=== PATIENT | male | born 1960 | race Caucasian/White ===

== ENCOUNTER 2021-01-30 13:35 | Observation (INO) | payer OTHER, SELFPAY ==
[2021-01-30] VITALS (11 sets, daily range): BP systolic 157–194; BP diastolic 79–141; PULSE 68–83; RESP 16; TEMP 36.7; O2SAT 94–97; BMI 32.0
[2021-01-30 17:27] LABS: Add Manual Diff / Slide Review NO; Basophils Absolute Auto 100 /uL (0-100); Eosinophils Absolute Auto 500 /uL (0-450); Eosinophils Percent Auto 4.5 % (2-4); Lymphocytes Absolute Auto 2500 /uL (1100-4500); Lymphocytes Percent Auto 23.1 % (25-40); Mean Corpuscular HGB Conc 34.1 % (30-36); Mean Corpuscular Hemoglobin 30.7 PG (26-34); Mean Corpuscular Volume 90.1 fL (80-100); Monocytes Absolute Auto 1200 /uL (0-900); Monocytes Percent Auto 11.2 % (3-14); Neutrophils Absolute Auto 6600 /uL (1500-7000); Neutrophils Percent Auto 60.2 % (50-75); Platelet Count 247 X10^3/uL (150-400); Red Blood Cell Count 5.55 X10^6/uL (4.5-5.9); Red Cell Distribution Width 13.3 % (11.6-14.8); White Blood Cell Count 10.9 X10^3/uL (4.5-11.0)
[2021-01-30 17:28] LABS: Alanine Aminotransferase 35 IU/L (<50); Albumin 4.6 g/dL (3.5-5.0); Albumin Globulin Ratio 1.4 (1.0-2.8); Alkaline Phosphatase 96 U/L (38-126); Aspartate Aminotransferase 28 IU/L (17-59); BUN Creatinine Ratio 29.8 (6-22); Bilirubin Total 0.4 mg/dL (0.2-1.3); Blood Urea Nitrogen 14 mg/dL (9-20); Calcium 9.3 mg/dL (8.4-10.2); Carbon Dioxide 27 mmol/L (22-32); Chloride 99 mmol/L (98-107); Estimated Glomerular Filt Rate > 60.0 mL/min (>60); Globulin 3.4 g/dL (1.7-4.1); Glucose 243 mg/dL (80-110); HEMOLYSIS < 15 (0-50); Potassium 4.2 mmol/L (3.4-5.1); Sodium 135 mmol/L (137-145)
[2021-01-30 17:36] LABS: Lipase 3255 U/L (23-300)
--- NOTE | 2021-01-30 18:59 | ED.ABDPAIN ---
HPI - Abdominal Pain General Chief Complaint: Abdominal Pain Stated Complaint: Needs fluids- sent by Doctor Time Seen by Provider: 01/30/21 18:20 Source: patient Mode of arrival: Ambulatory History of Present Illness HPI narrative: 60-year-old gentleman with history of diabetes hypertension hyperlipidemia no prior stroke or heart attack presents with left upper quadrant pain that is been getting worse over the last 48 hours. He has been having nausea but no specific vomiting denies fevers he does report early satiety but no weight changes. No chest pain, palpitations, dyspnea, headaches and no diarrhea. Related Data Home Medications Medication Instructions Recorded Confirmed atenolol 100 mg tablet 50 mg PO DAILY 01/30/21 01/30/21 insulin glargine 100 unit/mL (3 30 unit SUBCUT QPM 01/30/21 01/30/21 mL) subcutaneous pen (Lantus Solostar U-100 Insulin) lisinopril 20 mg tablet 20 mg PO DAILY 01/30/21 01/30/21 metformin 1,000 mg tablet 1,000 mg PO BID 01/30/21 01/30/21 pravastatin 20 mg tablet 20 mg PO DAILY 01/30/21 01/30/21 Allergies Allergy/AdvReac Type Severity Reaction Status Date / Time No Known Drug Allergies Allergy Verified 01/30/21 13:59 Review of Systems Review of Systems Narrative: Remainder of complete review of systems is otherwise unremarkable except for that included in the HPI. Patient History Medical History Hyperlipidemia Hypertension Type 2 diabetes mellitus Social History Smoking Status: Former smoker Smoking Status: Former smoker alcohol intake frequency: holidays/special occasions only Exam Narrative Exam Narrative: General: Healthy appearing, in no acute distress. Able to give a complete and coherent history. Well-nourished well-developed HEENT: Moist mucous membranes, normal sclera with reactive pupils, Neck: No JVD, supple Respiratory: Lungs are clear to auscultation, no wheezing no rales no rhonchi. Full and symmetrical air movement Cardiac: Regular rate and rhythm no murmurs no bruits Abdomen: Soft, diffusely tender with more tenderness in the left upper quadrant, no rebound or guarding, hypoactive bowel tones, no flank pain Skin: Warm and dry, no rashes Neurologic: Grossly neurologically intact with no obvious asymmetries or abnormalities Extremities: No trauma, well perfused Psych: Cooperative, appropriate insight and affect Initial Vital Signs Initial Vital Signs: Vital Signs Temperature 98.1 F 01/30/21 13:54 Pulse Rate 83 01/30/21 13:54 Respiratory Rate 16 01/30/21 13:54 Blood Pressure 177/86 H 01/30/21 13:54 Pulse Oximetry 96 01/30/21 13:54 Course Orders Ordered: ED Orders 01/30/21 17:00 Complete Blood Count AUTO DIFF Stat Comprehensive Metabolic Panel Stat Lipase Stat 01/30/21 19:00 Urine Microscopic Stat 01/30/21 19:10 COVID19 - ADMIT ([facility] swab/PCR) Stat 01/30/21 19:11 CT abdomen pelvis wo con Stat Hydromorphone HCl (Hydromorphone 0.5 Mg Inj) 0.5 mg IV Q15MIN PRN PRN Reason: Pain, Last Admin: 01/30/21 19:18 Dose: 0.5 mg Documented by: JANA Discontinued Medications Sodium Chloride (Normal Saline 0.9%) 1,000 mls @ 1,000 mls/hr IV BOLUS ONE Stop: 01/30/21 19:58 Last Infusion: 01/30/21 19:22 Dose: 0 mls/hr Documented by: Admin: 01/30/21 19:18 Dose: 1,000 mls/hr Documented by: JANA Ondansetron HCl (Ondansetron 4 Mg/2 Ml Inj) 4 mg IV NOW ONE Stop: 01/30/21 19:00 Last Admin: 01/30/21 19:18 Dose: 4 mg Documented by: JANA Vital Signs Vital signs: Vital Signs - 8 hr 01/30/21 13:54 01/30/21 17:37 01/30/21 18:00 Temperature 98.1 F Pulse Rate 83 77 71 Respiratory Rate 16 Blood Pressure 177/86 H 193/96 H 194/95 H Pulse Oximetry 96 96 94 01/30/21 18:30 01/30/21 19:00 01/30/21 19:57 Temperature Pulse Rate 78 76 Respiratory Rate Blood Pressure 176/141 H Pulse Oximetry 96 97 95 01/30/21 19:58 Temperature Pulse Rate 71 Respiratory Rate Blood Pressure 188/98 H Pulse Oximetry 94 MDM - Abdominal Pain Lab Data Result diagrams: 01/30/21 17:00 01/30/21 17:00 Labs: Lab Results 01/30/21 01/30/21 01/30/21 Range/Units 17:00 17:00 19:00 WBC 10.9 (4.5-11.0) X10^3/uL RBC 5.55 (4.5-5.9) X10^6/uL Hgb 17.0 (13.5-17.5) g/dL Hct 50.0 (41-53) % MCV 90.1 (80-100) fL MCH 30.7 (26-34) PG MCHC 34.1 (30-36) % RDW 13.3 (11.6-14.8) % Plt Count 247 (150-400) X10^3/uL Neut % (Auto) 60.2 (50-75) % Lymph % (Auto) 23.1 L (25-40) % [place] % (Auto) 11.2 (3-14) % Eos % (Auto) 4.5 H (2-4) % Baso % (Auto) 1.0 (0-2) % Neut # (Auto) 6600 (1198-4882) /uL Lymph # (Auto) 2500 (7605-8045) /uL [place] # (Auto) 1200 H (0-900) /uL Eos # (Auto) 500 H (0-450) /uL Baso # (Auto) 100 (0-100) /uL Sodium 135 L (137-145) mmol/L Potassium 4.2 (3.4-5.1) mmol/L Chloride 99 (98-107) mmol/L Carbon Dioxide 27 (22-32) mmol/L BUN 14 (9-20) mg/dL Creatinine 0.47 L (0.66-1.25) mg/dL Estimated GFR > 60.0 (>60) mL/min BUN/Creatinine Ratio 29.8 H (6-22) Glucose 243 H (80-110) mg/dL Calcium 9.3 (8.4-10.2) mg/dL Total Bilirubin 0.4 (0.2-1.3) mg/dL AST 28 (17-59) IU/L ALT 35 (<50) IU/L Alkaline Phosphatase 96 (38-126) U/L Total Protein 8.0 (6.3-8.2) g/dL Albumin 4.6 (3.5-5.0) g/dL Globulin 3.4 (1.7-4.1) g/dL Albumin/Globulin Ratio 1.4 (1.0-2.8) Lipase 3255 H (23-300) U/L Urine RBC 0-1/hpf (0-5/HPF) Urine WBC 0-1/hpf (0-5/HPF) Urine Bacteria None seen (None) Ur Culture Indicated? Cult not indicated Point of care testing: Urine Dip Bedside Urine Glucose 1000 mg/dl Bedside Urine Bilirubin - Negative Bedside Urine Ketone +++ 80 Urine Specific [place] 1.030 Bedside Urine Occult Blood - Negative Bedside Urine pH 6.0 Bedside Urine Protein ++ 100 Bedside Urine Urobilinogen - Negative Bedside Urine Nitrite - Negative Bedside Urine Leukocytes - Negative Esterase Imaging Data CT scan - abdomen/pelvis: Radiologist's Impression: FINDINGS:? Image quality:? Excellent.? ? ABDOMEN:? Lung bases:? Lung bases are clear.? Heart size is normal.? ? Solid organs:? Mild non-specific peripancreatic inflammation.? Unremarkable unenhanced liver, spleen, gallbladder, adrenal glands, and kidneys. ? Peritoneum and bowel:? No abnormally dilated or thickened loop of bowel.? No pericolonic or mesenteric inflammatory changes.? Moderate volume of formed stool throughout the colon. ? Nodes and vessels:? Nonaneurysmal abdominal aorta.? No threshold enlarged retroperitoneal lymph node. ? Miscellaneous:? No ventral abdominal wall hernia. ? ? PELVIS:? Genitourinary:? No free pelvic fluid.? Urinary bladder unremarkable.? Mildly enlarged prostate.? No threshold enlarged pelvic or inguinal lymph node. ? Bones:? No suspicious bony lesions.? No vertebral body compression fractures.? ? IMPRESSION:? ? ? Subtle peripancreatic fat stranding which could represent mild pancreatitis.? No associated fluid collection. ? ? Dictated by: Juan Pablo Hickman M.D. on 01/30/2021 at 19:57? ?? ECG Data Interpretation: Sinus rhythm at a rate of 74 Normal intervals, normal axis No acute ischemic changes MDM Narrative Medical decision making narrative: 60-year-old gentleman with increasing abdominal pain elevated lipase consistent with pancreatitis no evidence of obstruction or other abnormalities on CT scan. No drug or alcohol history. Uncertain etiology for the pancreatitis but his prescription medications will need to be closely reviewed. Will admit him for fluids, nausea pain control and further evaluation. 910pm Care is reviewed with Dr Rosenberg, hospitalist. Discharge Plan Departure Patient Disposition: Admitted as Observation Clinical Impression: Acute pancreatitis Prescriptions: No Action atenolol 100 mg tablet 50 mg PO DAILY RF: 0 lisinopril 20 mg Tablet 20 mg PO DAILY RF: 0 metformin 1,000 mg Tablet 1,000 mg PO BID RF: 0 pravastatin 20 mg Tablet 20 mg PO DAILY RF: 0 Lantus Solostar U-100 Insulin 100 unit/mL (3 mL) Insulin Pen 30 unit SUBCUT QPM RF: 0
--- NOTE | 2021-01-30 19:11 | DI.CT.S_ITS ---
PROCEDURE: CT ABDOMEN PELVIS WO CON INDICATIONS: acute pancreatitis TECHNIQUE: After the administration of oral contrast, 5 mm thick sections acquired from the diaphragms to the symphysis. 5 mm coronal and sagittal reformats were performed. For radiation dose reduction, the following was used: automated exposure control, adjustment of mA and/or kV according to patient size. COMPARISON: None. FINDINGS: Image quality: Excellent. ABDOMEN: Lung bases: Lung bases are clear. Heart size is normal. Solid organs: Mild non-specific peripancreatic inflammation. Unremarkable unenhanced liver, spleen, gallbladder, adrenal glands, and kidneys. Peritoneum and bowel: No abnormally dilated or thickened loop of bowel. No pericolonic or mesenteric inflammatory changes. Moderate volume of formed stool throughout the colon. Nodes and vessels: Nonaneurysmal abdominal aorta. No threshold enlarged retroperitoneal lymph node. Miscellaneous: No ventral abdominal wall hernia. PELVIS: Genitourinary: No free pelvic fluid. Urinary bladder unremarkable. Mildly enlarged prostate. No threshold enlarged pelvic or inguinal lymph node. Bones: No suspicious bony lesions. No vertebral body compression fractures. IMPRESSION: Subtle peripancreatic fat stranding which could represent mild pancreatitis. No associated fluid collection. Dictated by: Juan Pablo Hickman M.D. on 01/30/2021 at 19:57 Approved by: Juan Pablo Hickman M.D. on 01/30/2021 at 20:02
[2021-01-30] MEDS: ONDANSETRON 4 MG/2 ML INJ IV (19:18)
[2021-01-30] MEDS: SODIUM CHLORIDE 0.9% 1,000 ML 1000 ML IV (19:18)
[2021-01-30] MEDS: HYDROMORPHONE 0.5 MG INJ IV (19:18)
[2021-01-30 19:57] LABS: Bacteria Urine None Seen; Culture Indicated Urine Cult Not Indicated; RBC Urine 0-1/HPF (0-5/HPF); WBC Urine 0-1/HPF (0-5/HPF)
--- NOTE | 2021-01-30 22:40 | PM.HP.1 ---
History of Present Illness History of Present Illness Date Patient Seen: 01/30/21 Time Patient Seen: 22:41 Chief complaint: Needs fluids- sent by Doctor Narrative: The patient is a 60 y/o male with a history of hypertension, hyperlipidemia, type 2 diabetes mellitus who was well until 2 days prior to admission. The patient reports gradual onset of abdominal discomfort. The pain started on the right side, then progressed to the left side, then became diffuse. The pain was 5/10 Sat and increased on Saturday and became more severe today. The patient was seen at the [facility] in [place] for the pain and advised to proceed to the ED for further evaluation. In the emergency room here in [place] the patient was found to have a WBC of 10.9 H/H of 17/50, Glucose of 243, lipase of 3255, alk phos of 96, AST 28, ALT 35. Patient underwent CT of the Abdomen/Pelvis whcih revealed Subtle peripancreatic fat stranding which could represent mild pancreatitis.? No associated fluid collection. Patient reports that the abdominal pain became quite severe in the emergency department but improved with IV pain medications. The patient denies nausea, emesis, hemetemesis , brbpr, history of alcohol use/abuse. or illicit substances. He has had no abdominal surgeries and no prior history of pancreatitis. He denies change in his weight, no history of gallstones. He denies any trauma to his belly. He has never been hospitalized. The patient had Covid pneumonia 2 years ago and was vaccinated subsequently. The patient is admitted to the hosptial for inpatient treatment of acute pancreatitis. ? Patient History Medical History Hyperlipidemia Hypertension Type 2 diabetes mellitus Family & Social History Family History (Updated 01/30/21 @ 22:49 by Kimi Rosenberg MD) Father Heart disease Safety & Behavioral: no smoking, quit 2 years ago. no alcohol patient does not use illicit substances Tobacco & Substance use: Smoking Status Former smoker alcohol intake frequency holiday/special occasion Meds Home Medications and Allergies Home Medications Medication Instructions Recorded Confirmed Type atenolol 100 mg tablet 50 mg PO DAILY 01/30/21 01/30/21 History glipizide 10 mg tablet, extended 10 mg PO DAILY 01/30/21 01/30/21 History release 24 hr insulin glargine 100 unit/mL (3 30 unit SUBCUT QPM 01/30/21 01/30/21 History mL) subcutaneous pen (Lantus Solostar U-100 Insulin) lisinopril 20 mg tablet 20 mg PO DAILY 01/30/21 01/30/21 History metformin 1,000 mg tablet 1,000 mg PO BID 01/30/21 01/30/21 History ondansetron 4 mg disintegrating 4 mg PO Q8H PRN 01/30/21 01/30/21 History tablet polyethylene glycol 3350 17 17 g PO DAILY PRN 01/30/21 01/30/21 History gram/dose oral powder (Miralax) pravastatin 20 mg tablet 20 mg PO DAILY 01/30/21 01/30/21 History Allergies Allergy/AdvReac Type Severity Reaction Status Date / Time No Known Drug Allergies Allergy Verified 01/30/21 13:59 Review of Systems Review of Systems Narrative: 10 point ROS is negative Exam Vital Signs (past 8 hours): - 01/30/21 17:37 01/30/21 18:00 01/30/21 18:30 Pulse Rate 77 71 78 Blood Pressure 193/96 H 194/95 H 176/141 H Pulse Oximetry 96 94 96 01/30/21 19:00 01/30/21 19:57 01/30/21 19:58 Pulse Rate 76 71 Blood Pressure 188/98 H Pulse Oximetry 97 95 94 01/30/21 20:00 01/30/21 20:30 01/30/21 21:00 Pulse Rate 73 71 68 Blood Pressure Pulse Oximetry 95 94 94 01/30/21 21:13 Pulse Rate 74 Blood Pressure 157/79 H Pulse Oximetry 96 Oxygen Delivery Method Room Air Narrative Exam Narrative: Pleasant male in no acute distress HENNE Other: NC/AT PERRL, EOMI , No scleral icterus Neck Other: Supple without adenopathy or thyromegaly Resp Other: Lungs: clear to auscultation Cardio Other: RRR nl Sl S2 GI Other: Abd: soft/ mildly tender in the right uppper quadrant, no HSM, no rebound tenderness, no boardlike rigidity no palpable masses Skin Other: no lesions noted Neuro Other: Cranial Nerves 2-12 intact, strength is symmetric and equal, sensation grossly intact, gait is not assessed Extrem Other: no edema Psych Other: no confusion, alert, and appropriate no delusions or hallucinations noted Objective Labs Result Diagrams: 01/30/21 17:00 01/30/21 17:00 Labs: Laboratory Results - last 24 hr 01/30/21 01/30/21 01/30/21 17:00 17:00 19:00 WBC 10.9 RBC 5.55 Hgb 17.0 Hct 50.0 MCV 90.1 MCH 30.7 MCHC 34.1 RDW 13.3 Plt Count 247 Neut % (Auto) 60.2 Lymph % (Auto) 23.1 L [place] % (Auto) 11.2 Eos % (Auto) 4.5 H Baso % (Auto) 1.0 Neut # (Auto) 6600 Lymph # (Auto) 2500 [place] # (Auto) 1200 H Eos # (Auto) 500 H Baso # (Auto) 100 Sodium 135 L Potassium 4.2 Chloride 99 Carbon Dioxide 27 BUN 14 Creatinine 0.47 L Estimated GFR > 60.0 BUN/Creatinine Ratio 29.8 H Glucose 243 H Calcium 9.3 Total Bilirubin 0.4 AST 28 ALT 35 Alkaline Phosphatase 96 Total Protein 8.0 Albumin 4.6 Globulin 3.4 Albumin/Globulin Ratio 1.4 Lipase 3255 H Urine RBC 0-1/hpf Urine WBC 0-1/hpf Urine Bacteria None seen Ur Culture Indicated? Cult not indicated Assessment & Plan Assessment & Plan narrative: 60 y/o male with a history of hypertension, hyperlipidemia, type 2 diabetes admitted to the hospital for acute pancreatitis -pain gradual over the last few days -Abdominal CT reveals peripancreatic fat stranding -WBC 10.9, Lipase 3255, LFT's normal -Now with RUQ, given no history of alcohol will check abdominal ultrasounds to r/o stones/sludge/or dilated ducts -NPO except for medications -IV hydration, antinausea medications, pain medications -DVT prophylaxis -antibiotics not indicated as he does not have necrotizing pancreatitis Type 2 Diabetes -will check hemoglobin A1C -hold metformin and glipizide -continue lantus plus sliding scale insulin Hypertension -continue atenolol and lisinopril Hyperlipidemia -will continue pravastatin -will check lipids Patient reports he is a full code. Will note that in his record He surrogate decision maker is his girlfriend, MS Leslie Patient will be admitted as an inpatient I have utilized all available resources to review, update, and verify his current medications. Time Spent With Patient Critical Care time: I spent a total of [] minutes of critical care time on this patient's care today; this time is exclusive of procedural time.
[2021-01-30 23:03] LABS: Hemoglobin A1C% w Est Avg Glu 9.5 % (4.0-6.0)
[2021-01-30 23:05] LABS: COVID19 - ADMIT (NP swab/PCR) Negative (Negative)
[2021-01-30] MEDS: LACTATED RINGERS 1,000 ML 175 ML IV (23:16)
[2021-01-30] MEDS: PRAVASTATIN 20 MG TABLET PO (23:34)
[2021-01-30] MEDS: INSULIN GLARGINE 100 UNIT/ML 3ML PEN 30 UNIT SUBCUT (23:34)
[2021-01-30] MEDS: INSULIN LISPRO 100 UNIT/ML 3ML VIAL SUBCUT (23:35)
[2021-01-30] MEDS: ACETAMINOPHEN 325 MG TABLET 650 MG PO (23:37)
[2021-01-31] VITALS: BP 172/85; PULSE 73; RESP 16; TEMP 37.1; O2SAT 94
--- NOTE | 2021-01-31 00:54 | PC.NURSE ---
Patient is alert and oriented. Breath sounds CTA with RA sat of 94%. HRR with telemetry reading of SR. BP elevated at 172/85. Denies nausea. Complained of 2-3/10 right sided abdominal pain at start of shift and was medicated with scheduled Tylenol. States pain is still the same but has not worsened; is aware he can have other pain medication if pain reached 4-6/10. Abdomen is soft and non tender with active BT. States he has not eaten in past couple days as makes pain increase. Is currently NPO and provided mouth swabs to moisten mouth. Is able to move himself in bed. Gait not assessed but states he is steady and denies any weakness or use of assistive device. Verbalizes agreement to call for staff assist if needing to get up to bathroom. Urinal provided; denies dysuria, frequency or urgency with urination. Bilateral calf SCD's applied at shift change. CBG was 205 and was given insulin according to MD orders. Fall risk score is moderate.
[2021-01-31] MEDS: HYDROMORPHONE 0.5 MG INJ IV ×2 (02:18→16:36)
[2021-01-31] MEDS: LACTATED RINGERS 1,000 ML 175 ML IV (05:03)
[2021-01-31 05:04] VITALS: BP 154/77; PULSE 71; RESP 16; TEMP 36.7; O2SAT 95
[2021-01-31 05:30] LABS: Add Manual Diff / Slide Review NO; Basophils Absolute Auto 100 /uL (0-100); Basophils Percent Auto 0.8 % (0-2); Eosinophils Absolute Auto 400 /uL (0-450); Eosinophils Percent Auto 4.8 % (2-4); Hematocrit 46.8 % (41-53); Hemoglobin 15.7 g/dL (13.5-17.5); Lymphocytes Absolute Auto 2200 /uL (1100-4500); Lymphocytes Percent Auto 24.2 % (25-40); Mean Corpuscular HGB Conc 33.6 % (30-36); Mean Corpuscular Hemoglobin 30.5 PG (26-34); Mean Corpuscular Volume 90.8 fL (80-100); Monocytes Absolute Auto 1000 /uL (0-900); Monocytes Percent Auto 11.3 % (3-14); Neutrophils Absolute Auto 5400 /uL (1500-7000); Neutrophils Percent Auto 58.9 % (50-75); Platelet Count 211 X10^3/uL (150-400); Red Blood Cell Count 5.16 X10^6/uL (4.5-5.9); Red Cell Distribution Width 13.4 % (11.6-14.8); White Blood Cell Count 9.2 X10^3/uL (4.5-11.0)
[2021-01-31 05:37] LABS: Alanine Aminotransferase 27 IU/L (<50); Albumin 3.9 g/dL (3.5-5.0); Albumin Globulin Ratio 1.4 (1.0-2.8); Alkaline Phosphatase 77 U/L (38-126); Aspartate Aminotransferase 22 IU/L (17-59); BUN Creatinine Ratio 27.5 (6-22); Bilirubin Total 0.5 mg/dL (0.2-1.3); Blood Urea Nitrogen 11 mg/dL (9-20); Calcium 8.7 mg/dL (8.4-10.2); Carbon Dioxide 27 mmol/L (22-32); Chloride 101 mmol/L (98-107); Estimated Glomerular Filt Rate > 60.0 mL/min (>60); Globulin 2.7 g/dL (1.7-4.1); Glucose 188 mg/dL (80-110); HEMOLYSIS < 15 (0-50); Potassium 4.3 mmol/L (3.4-5.1); Sodium 133 mmol/L (137-145); Total Protein 6.6 g/dL (6.3-8.2)
[2021-01-31 05:52] LABS: Cholesterol 144 mg/dL (140-199); HDL Cholesterol 40 mg/dL (40-60); LDL Cholesterol Calculated 72 mg/dL (<100); Triglycerides 159 mg/dL (35-150)
[2021-01-31] MEDS: ACETAMINOPHEN 325 MG TABLET 650 MG PO ×2 (05:54→11:26)
[2021-01-31 08:00] VITALS: O2SAT 97
[2021-01-31 09:14] VITALS: BP 174/80; PULSE 73; RESP 17; TEMP 36.9; O2SAT 94
--- NOTE | 2021-01-31 09:30 | DI.US.S_ITS ---
PROCEDURE: US ABDOMEN LIMITED INDICATIONS: POSSIBLE GALLSTONES/CHOLECYSTITIS TECHNIQUE: Real-time focused scanning was performed of the abdomen, with image documentation. COMPARISON: [facility], CT, CT ABDOMEN PELVIS WO CON, 01/30/2021, 19:24. FINDINGS: The liver demonstrates generalized mildly increased echogenicity. This decreases ultrasound sensitivity for detection of hepatic masses. Presumed fatty sparing can be seen adjacent to the gallbladder. No findings of gallstones or sludge are seen. The gallbladder wall is not thickened, measuring 3 mm or less. No specific pericholecystic fluid is seen. The sonographic Humphreys sign is negative. There is no biliary dilatation, the common bile duct measures 5 mm. No significant pancreatic abnormality is seen on these images. IMPRESSION: The gallbladder demonstrates a normal sonographic appearance. No biliary dilatation is seen. The liver demonstrates increased echogenicity. This finding is nonspecific, yet it is most commonly attributed to fatty infiltration. Dictated by: Haider Oseguera M.D. on 01/31/2021 at 9:30 Approved by: Haider Oseguera M.D. on 01/31/2021 at 9:31
[2021-01-31] MEDS: INFLUENZA VACCINE QIV 0.5 ML SYRINGE IM (09:44)
[2021-01-31] MEDS: lisinopriL 20 MG TABLET PO (09:45)
[2021-01-31] MEDS: ENOXAPARIN 40 MG/0.4 ML SYRINGE SUBCUT (09:45)
[2021-01-31] MEDS: atenoloL 50 MG TABLET PO (09:45)
--- NOTE | 2021-01-31 11:19 | P.DS_ITS ---
History of Present Illness History of Present Illness Chief complaint: Needs fluids- sent by Doctor Narrative: The patient is a 60 y/o male with a history of hypertension, hyperlipidemia, type 2 diabetes mellitus who was well until 2 days prior to admission. The patient reports gradual onset of abdominal discomfort. The pain started on the right side, then progressed to the left side, then became diffuse. The pain was 5/10 Sat and increased on Saturday and became more severe today. The patient was seen at the [facility] in [place] for the pain and advised to proceed to the ED for further evaluation. In the emergency room here in [place] the patient was found to have a WBC of 10.9 H/H of 17/50, Glucose of 243, lipase of 3255, alk phos of 96, AST 28, ALT 35.? Patient underwent CT of the Abdomen/Pelvis whcih revealed?Subtle peripancreatic fat stranding which could represent mild pancreatitis.? No associated fluid collection. Patient reports that the abdominal pain became quite severe in the emergency department but improved with IV pain medications. The patient denies nausea, emesis, hemetemesis , brbpr, history of alcohol use/abuse. or illicit substances. He has had no abdominal surgeries and no prior history of pancreatitis. He denies change in his weight, no history of gallstone s. ? He denies any trauma to his belly. He has never been hospitalized.? The patient had Covid pneumonia 2 years ago and was vaccinated subsequently. The patient is admitted to the hosptial for inpatient treatment of acute pancreatitis. Discharge Providers Provider Date of admission: 01/30/21 21:16 Discharge Date: 01/31/21 Discharge provider: Jaylon Felix MD Summary Hospital Course Discharge Diagnosis: 1. Acute pancreatitis, mild 2. Type 2 Diabetes 3. Hypertension 4. Hyperlipidemia Hospital Course: Mr. Garcia was admitted with pancreatitis. He had abdominal pain, CT with mild peripancreatic fat stranding, lipase 3255. His LFTs were normal. No new recent medications. No significant alcohol use. His triglycerides were not significantly elevated. His etiology causing pancreatitis was unclear. He had imaging showing no gallstones. He was given IV fluids and pain med ications. On day of discharge he tolerated a low fat diet with no issues. His pain was controlled. He was given pain medications and discharged home. Exam Vital Signs (past 8 hours): Oxygen Delivery Method Room Air Oxygen Flow Rate 0 Narrative Exam Narrative: GEN: no acute distress CV: regular rate and rhythm PULM: clear bilaterally, no wheezes, rhonchi, rales ABD: soft, nontender, nondistended, no organomegaly EXT: warm and well perfused with no edema Objective Labs Result Diagrams: 01/31/21 05:18 01/31/21 05:18 [facility] Medical History Hyperlipidemia Hypertension Type 2 diabetes mellitus Family History (Updated 01/30/21 @ 22:49 by Kimi Rosenberg MD) Father Heart disease Social History household members: significant other Smoking Status: Former smoker Discharge Plan Discharge Plan Patient Disposition: Home Provider Discharge Comment: Mr. Garcia was admitted with abdominal discomfor t. He was found to have pancreatitis. He improved with IV fluids and pain medications. He was able to be discharged home after tolerating foods with minimal pain. He should be on a low fat diet as that will let his pancreatitis heal. Discharge orders & Medications Prescriptions: New oxycodone 5 mg tablet 5 mg PO Q6H PRN (Reason: pain) Qty: 14 RF: 0 docusate sodium 100 mg tablet 100 mg PO BID Qty: 60 RF: 0 senna 8.6 mg capsule 8.6 mg PO BEDTIME PRN (Reason: constipation) Qty: 30 RF: 0 Continued atenolol 100 mg tablet 50 mg PO DAILY RF: 0 lisinopril 20 mg Tablet 20 mg PO DAILY RF: 0 metformin 1,000 mg Tablet 1,000 mg PO BID RF: 0 pravastatin 20 mg Tablet 20 mg PO DAILY RF: 0 Lantus Solostar U-100 Insulin 100 unit/mL (3 mL) Insulin Pen 30 unit SUBCUT QPM RF: 0 glipizide 10 mg Tablet Extended Release 24hr 10 mg PO DAILY RF: 0 polyethylene glycol 3350 [Miralax] 17 gram/dose Powder 17 g PO DAILY PRN (Reason: Constipation) RF: 0 ondansetron 4 mg Tablet,Disintegrating 4 mg PO Q8H PRN (Reason: Nausea) RF: 0 Diet/Activity/Treatments Diet: Low-fat Visit Report/Discharge Packet Instructions: Eating a Diet Low in Saturated Fat, Trans Fat, and Cholesterol, DI for Pancreatitis Discharge Data Attending Provider: Kimi Rosenberg MIPS - DC The patient has current or prior documentation of left ventricular ejection fraction (LVEF) less than 40%, or moderate or severely depressed left ventricular systolic function.: No
[2021-01-31] MEDS: INSULIN LISPRO 100 UNIT/ML 3ML VIAL SUBCUT ×2 (11:26→17:28)
[2021-01-31 14:08] VITALS: O2SAT 97
--- NOTE | 2021-01-31 14:40 | PC.NURSE ---
Pt able to tolerate full liquid diet without problem. No pain, still some tenderness but the pain he had when he came in is gone. Diet advanced to general. If he is able to tolerate that then he may go home.
--- NOTE | 2021-01-31 14:46 | CM.DANOTE ---
DCP/Assessment: Reviewed chart. Patient is a 60yr old male admitted to [facility] with acute pancreatitis. PCP: Orion Doyle. Primary payor 1) Carol BURGER. Met with patient this afternoon explained CM/SW role. Patient alert and oriented at time of visit. Patient reports that he hopes to d/c home today. Patient resides with significant other in [place]. Patient reports that he is completely I with all ADL's. P: Home when medically stable. No identified d/c planning needs at this time. [facility] Discharge Planning/Care Management CM Discharge Assessment Start: 01/31/21 14:43 Freq: Status: Active Protocol: Document 01/31/21 14:44 KJS (Rec: 01/31/21 14:46 MARLEN [id number]) Discharge Planning Assessment Assigned Making Machine Catcher YAAKOV Brown Contact Information Radha Leslie (Life partner) # [phone] Advance Directives? No History Provided By Patient,Medical Record Prior Living Arrangements House Household Members significant other Type of transporation used prior to Drives own vehicle admit Independent with ADL's Yes Is patient alert and oriented? Yes Caregiver for Another No Barriers to Discharge No Discharge Plan Home Transportation Arrangement Family/partner to provide transport. Referrals Initiated None needed Review Status In Process Next Review Type Continued Stay Review
[2021-01-31 16:34] VITALS: BP 154/95; PULSE 70; RESP 16; TEMP 36.4; O2SAT 95
== END 2021-01-31 19:35 | disposition home or self-care (01) ==
LOC: ED 21:13 → AC 21:17
PROVIDERS: Emergency Medicine; Admitting Provider Internal Medicine; Emergency Provider Emergency Medicine; Visit Provider Internal Medicine
DX: K85.90 Acute pancreatitis without necrosis or infection, unspecified (principal); E11.9 Type 2 diabetes mellitus without complications; I10 Essential (primary) hypertension; E78.5 Hyperlipidemia, unspecified; Z23 Encounter for immunization; Z79.4 Long term (current) use of insulin; Z79.84 Long term (current) use of oral hypoglycemic drugs; Z86.16 Personal history of COVID-19; Z20.822 Contact with and (suspected) exposure to COVID-19
CPT/HCPCS: 36415; 74176; 76705; 80053; 80061; 81003; 81015; 82962; 83036; 83690; 85025; 87635; 90471; 90656; 93005; 93010; 96361; 96374; 99284; C9803; G0378; J1170; J1650; J1815; J2405; Q2038

== ENCOUNTER 2021-05-13 07:26 | Emergency (ER) | payer OTHER, SELFPAY ==
[2021-01-30 22:39] VITALS: BMI 32.0
[2021-05-13 08:08] VITALS: BP 180/100; PULSE 100; RESP 22; TEMP 36.7; O2SAT 97; BMI 31.4
--- NOTE | 2021-05-13 08:36 | ED_ITS ---
HPI - General Adult General Chief complaint: Upper Respiratory Symptoms Stated complaint: cough, cold, had sore throat Time Seen by Provider: 05/13/21 08:36 Source: patient Mode of arrival: Family Vehicle History of Present Illness HPI narrative: 60-year-old gentleman with history of diabetes, hypertension, hyperlipidemia, prior COVID infection and vaccination, prior pancreatitis presents with 4 days of increasing sneezing, cough, sore throat, malaise and cough that seems to be productive however he is not able to get any sputum. He denies fevers, wheezing, chest pain, severe dyspnea, palpitations, lower extremity edema, vomiting, diarrhea. He does note slight dizziness when he stands up and has noticed that his sugars have been increased recently. Blood pressure is elevated on arrival and he notes that he has not taken his usual morning medications. Related Data Home Medications Medication Instructions Recorded Confirmed atenolol 100 mg tablet 50 mg PO DAILY 01/30/21 01/30/21 glipizide 10 mg tablet, extended 10 mg PO DAILY 01/30/21 01/30/21 release 24 hr insulin glargine 100 unit/mL (3 30 unit SUBCUT QPM 01/30/21 01/30/21 mL) subcutaneous pen (Lantus Solostar U-100 Insulin) lisinopril 20 mg tablet 20 mg PO DAILY 01/30/21 01/30/21 metformin 1,000 mg tablet 1,000 mg PO BID 01/30/21 01/30/21 ondansetron 4 mg disintegrating 4 mg PO Q8H PRN 01/30/21 01/30/21 tablet polyethylene glycol 3350 17 17 g PO DAILY PRN 01/30/21 01/30/21 gram/dose oral powder (Miralax) pravastatin 20 mg tablet 20 mg PO DAILY 01/30/21 01/30/21 Previous Rx's Medication Instructions Recorded docusate sodium 100 mg tablet 100 mg PO BID #60 tab 01/31/21 oxycodone 5 mg tablet 5 mg PO Q6H PRN #14 tab 01/31/21 sennosides 8.6 mg capsule (senna) 8.6 mg PO BEDTIME PRN #30 cap 01/31/21 Allergies Allergy/AdvReac Type Severity Reaction Status Date / Time No Known Drug Allergies Allergy Verified 05/13/21 08:12 Review of Systems Review of Systems Narrative: Remainder of complete review of systems is otherwise unremarkable except for that included in the HPI. Patient History Medical History Hyperlipidemia Hypertension Type 2 diabetes mellitus Family History Father Heart disease Social History household members: significant other Smoking Status: Former smoker Smoking Status: Former smoker alcohol intake frequency: holidays/special occasions only Substance Use Type: does not use Exam Initial Vital Signs Initial Vital Signs: Vital Signs Temperature 98.0 F 05/13/21 08:08 Pulse Rate 100 H 05/13/21 08:08 Respiratory Rate 22 05/13/21 08:08 Blood Pressure 180/100 H 05/13/21 08:08 Pulse Oximetry 97 05/13/21 08:08 General: Appears to not feel well but in no acute distress. Able to give a complete and coherent history. Well-nourished well-developed HEENT: Moist mucous membranes, normal sclera with reactive pupils, no significant posterior pharyngeal erythema or exudate Neck: No JVD, supple, no cervical adenopathy Respiratory: Lungs are clear to auscultation, no wheezing no rales no rhonchi. Full and symmetrical air movement Cardiac: Regular rate and rhythm no murmurs no bruits Abdomen: Soft, nontender, good bowel tones, no flank pain Skin: Warm and dry, no rashes Neurologic: Grossly neurologically intact with no obvious asymmetries or abnormalities Extremities: No trauma, well perfused Psych: Cooperative, appropriate insight and affect Course Orders Ordered: ED Orders 05/13/21 07:52 COVID19 -Nasal swab/Pre-Proc Stat 05/13/21 08:46 XR chest 1V Stat 05/13/21 09:00 Complete Blood Count AUTO DIFF Stat Comprehensive Metabolic Panel Stat Procalcitonin Stat Discontinued Medications Atenolol (Atenolol 50 Mg Tablet) 50 mg PO NOW ONE Stop: 05/13/21 08:45 Last Admin: 05/13/21 09:10 Dose: 50 mg Documented by: EMILE Lisinopril (Lisinopril 20 Mg Tablet) 20 mg PO NOW ONE Stop: 05/13/21 08:45 Last Admin: 05/13/21 09:09 Dose: 20 mg Documented by: EMILE Vital Signs Vital signs: Vital Signs - 8 hr 05/13/21 08:08 05/13/21 09:09 05/13/21 10:00 Temperature 98.0 F Pulse Rate 100 H 98 H 78 Respiratory Rate 22 18 Blood Pressure 180/100 H 193/95 H 171/89 H Pulse Oximetry 97 94 Medical Decision Making Lab Data Result diagrams: 05/13/21 09:00 05/13/21 09:00 Labs: Lab Results 05/13/21 05/13/21 05/13/21 Range/Units 07:52 09:00 09:00 WBC 11.4 H (4.5-11.0) X10^3/uL RBC 5.24 (4.5-5.9) X10^6/uL Hgb 16.3 (13.5-17.5) g/dL Hct 46.8 (41-53) % MCV 89.3 (80-100) fL MCH 31.0 (26-34) PG MCHC 34.7 (30-36) % RDW 13.1 (11.6-14.8) % Plt Count 283 (150-400) X10^3/uL Neut % (Auto) 67.5 (50-75) % Lymph % (Auto) 16.4 L (25-40) % [place] % (Auto) 12.2 (3-14) % Eos % (Auto) 3.3 (2-4) % Baso % (Auto) 0.6 (0-2) % Neut # (Auto) 7700 H (2291-6089) /uL Lymph # (Auto) 1900 (1564-0513) /uL [place] # (Auto) 1400 H (0-900) /uL Eos # (Auto) 400 (0-450) /uL Baso # (Auto) 100 (0-100) /uL Sodium 133 L (137-145) mmol/L Potassium 4.5 (3.4-5.1) mmol/L Chloride 95 L (98-107) mmol/L Carbon Dioxide 30 (22-32) mmol/L BUN 13 (9-20) mg/dL Creatinine 0.54 L (0.66-1.25) mg/dL Estimated GFR > 60.0 (>60) mL/min BUN/Creatinine Ratio 24.1 H (6-22) Glucose 302 H (80-110) mg/dL Calcium 9.7 (8.4-10.2) mg/dL Total Bilirubin 0.6 (0.2-1.3) mg/dL AST 29 (17-59) IU/L ALT 36 (<50) IU/L Alkaline Phosphatase 134 H (38-126) U/L Total Protein 8.4 H (6.3-8.2) g/dL Albumin 4.5 (3.5-5.0) g/dL Globulin 3.9 (1.7-4.1) g/dL Albumin/Globulin Ratio 1.2 (1.0-2.8) Procalcitonin (<0.5) ng/mL SARS-CoV-2 (PCR) Negative (Negative) 05/13/21 Range/Units 09:00 WBC (4.5-11.0) X10^3/uL RBC (4.5-5.9) X10^6/uL Hgb (13.5-17.5) g/dL Hct (41-53) % MCV (80-100) fL MCH (26-34) PG MCHC (30-36) % RDW (11.6-14.8) % Plt Count (150-400) X10^3/uL Neut % (Auto) (50-75) % Lymph % (Auto) (25-40) % [place] % (Auto) (3-14) % Eos % (Auto) (2-4) % Baso % (Auto) (0-2) % Neut # (Auto) (2008-7005) /uL Lymph # (Auto) (5473-4789) /uL [place] # (Auto) (0-900) /uL Eos # (Auto) (0-450) /uL Baso # (Auto) (0-100) /uL Sodium (137-145) mmol/L Potassium (3.4-5.1) mmol/L Chloride (98-107) mmol/L Carbon Dioxide (22-32) mmol/L BUN (9-20) mg/dL Creatinine (0.66-1.25) mg/dL Estimated GFR (>60) mL/min BUN/Creatinine Ratio (6-22) Glucose (80-110) mg/dL Calcium (8.4-10.2) mg/dL Total Bilirubin (0.2-1.3) mg/dL AST (17-59) IU/L ALT (<50) IU/L Alkaline Phosphatase (38-126) U/L Total Protein (6.3-8.2) g/dL Albumin (3.5-5.0) g/dL Globulin (1.7-4.1) g/dL Albumin/Globulin Ratio (1.0-2.8) Procalcitonin 0.10 (<0.5) ng/mL SARS-CoV-2 (PCR) (Negative) Imaging Data Chest x-ray: Radiologist's Impression: FINDINGS:? ? Surgical changes and devices:? None.? ? Lungs and pleura:? Lungs are clear.? No pleural effusions or pneumothorax.? ? Mediastinum:? Mediastinal contours appear normal.? Heart size is enlarged.? Mild vascular congestion noted..? ? Bones and chest wall:? No suspicious bony lesions.? Overlying soft tissues appear unremarkable.? Convex left cervical thoracic scoliosis ? IMPRESSION:? Cardiomegaly and mild vascular congestion. ? ? ? Approved by: Eugene Poole M.D. on 05/13/2021 at 8:08? [facility] Narrative Medical decision making narrative: 60-year-old gentleman with cough and sore throat. COVID negative. No evidence of bacterial superinfection or bacterial pneumonia. At this time, there is no evidence of sepsis, acute coronary syndrome, significant heart failure. Reassurance is given and anticipatory guidance regarding resolution of viral upper respiratory symptoms reviewed. Questions are answered he is safe for home discharge Discharge Plan Departure Patient Disposition: Home Clinical Impression: Upper respiratory infection Instructions: DI for Viral Upper Respiratory Infection -- Adult Activity Restrictions/Additional Instructions: Thank you for coming in today Workup today does not show any evidence for COVID, bacterial pneumonia, heart attack, heart failure or other reasons that would require hospitalization. You have an upper respiratory infection and it likely is going to improve within the next couple of days with simple rest, plenty of fluids and a little bit of chicken soup. If you are getting worse, please return to the ER Prescriptions: No Action atenolol 100 mg tablet 50 mg PO DAILY 0RF Label Comments: TAKE 1/2 TABLET BY MOUTH DAILY lisinopril 20 mg Tablet 20 mg PO DAILY 0RF metformin 1,000 mg Tablet 1,000 mg PO BID 0RF pravastatin 20 mg Tablet 20 mg PO DAILY 0RF Lantus Solostar U-100 Insulin 100 unit/mL (3 mL) Insulin Pen 30 unit SUBCUT QPM 0RF glipizide 10 mg Tablet Extended Release 24hr 10 mg PO DAILY 0RF polyethylene glycol 3350 [Miralax] 17 gram/dose Powder 17 g PO DAILY PRN (Reason: Constipation) 0RF ondansetron 4 mg Tablet,Disintegrating 4 mg PO Q8H PRN (Reason: Nausea) 0RF oxycodone 5 mg tablet 5 mg PO Q6H PRN (Reason: pain) Qty: 14 0RF docusate sodium 100 mg tablet 100 mg PO BID Qty: 60 0RF senna 8.6 mg capsule 8.6 mg PO BEDTIME PRN (Reason: constipation) Qty: 30 0RF
[2021-05-13 08:44] LABS: COVID19 -Nasal RAPID Negative (Negative)
--- NOTE | 2021-05-13 08:46 | DI.RAD.S_ITS ---
PROCEDURE: XR CHEST 1V INDICATIONS: cough, dyspnea TECHNIQUE: One view of the chest was acquired. COMPARISON: None. FINDINGS: Surgical changes and devices: None. Lungs and pleura: Lungs are clear. No pleural effusions or pneumothorax. Mediastinum: Mediastinal contours appear normal. Heart size is enlarged. Mild vascular congestion noted.. Bones and chest wall: No suspicious bony lesions. Overlying soft tissues appear unremarkable. Convex left cervical thoracic scoliosis IMPRESSION: Cardiomegaly and mild vascular congestion. Approved by: Eugene Poole M.D. on 05/13/2021 at 8:08
[2021-05-13 09:09] VITALS: BP 193/95; PULSE 98
[2021-05-13] MEDS: lisinopriL 20 MG TABLET PO (09:09)
[2021-05-13 09:10] LABS: Add Manual Diff / Slide Review NO; Basophils Absolute Auto 100 /uL (0-100); Basophils Percent Auto 0.6 % (0-2); Eosinophils Absolute Auto 400 /uL (0-450); Eosinophils Percent Auto 3.3 % (2-4); Hematocrit 46.8 % (41-53); Hemoglobin 16.3 g/dL (13.5-17.5); Lymphocytes Absolute Auto 1900 /uL (1100-4500); Lymphocytes Percent Auto 16.4 % (25-40); Mean Corpuscular HGB Conc 34.7 % (30-36); Mean Corpuscular Volume 89.3 fL (80-100); Monocytes Absolute Auto 1400 /uL (0-900); Monocytes Percent Auto 12.2 % (3-14); Neutrophils Absolute Auto 7700 /uL (1500-7000); Neutrophils Percent Auto 67.5 % (50-75); Platelet Count 283 X10^3/uL (150-400); Red Blood Cell Count 5.24 X10^6/uL (4.5-5.9); Red Cell Distribution Width 13.1 % (11.6-14.8); White Blood Cell Count 11.4 X10^3/uL (4.5-11.0)
[2021-05-13] MEDS: atenoloL 50 MG TABLET PO (09:10)
[2021-05-13 09:20] LABS: Alanine Aminotransferase 36 IU/L (<50); Albumin 4.5 g/dL (3.5-5.0); Albumin Globulin Ratio 1.2 (1.0-2.8); Alkaline Phosphatase 134 U/L (38-126); Aspartate Aminotransferase 29 IU/L (17-59); BUN Creatinine Ratio 24.1 (6-22); Bilirubin Total 0.6 mg/dL (0.2-1.3); Blood Urea Nitrogen 13 mg/dL (9-20); Calcium 9.7 mg/dL (8.4-10.2); Carbon Dioxide 30 mmol/L (22-32); Chloride 95 mmol/L (98-107); Estimated Glomerular Filt Rate > 60.0 mL/min (>60); Globulin 3.9 g/dL (1.7-4.1); Glucose 302 mg/dL (80-110); HEMOLYSIS < 15 (0-50); Potassium 4.5 mmol/L (3.4-5.1); Sodium 133 mmol/L (137-145); Total Protein 8.4 g/dL (6.3-8.2)
[2021-05-13 10:00] VITALS: BP 171/89; PULSE 78; RESP 18; O2SAT 94
== END 2021-05-13 11:11 | disposition home or self-care (01) ==
PROVIDERS: Emergency Provider Emergency Medicine
DX: J06.9 Acute upper respiratory infection, unspecified (principal); E11.65 Type 2 diabetes mellitus with hyperglycemia; Z79.84 Long term (current) use of oral hypoglycemic drugs; Z79.4 Long term (current) use of insulin; Z20.822 Contact with and (suspected) exposure to COVID-19; Z87.891 Personal history of nicotine dependence
CPT/HCPCS: 36415; 71045; 80053; 84145; 85025; 87635; 99283; 99284; C9803

== ENCOUNTER 2022-06-30 20:57 | Emergency (ER) | payer OTHER, SELFPAY ==
[2021-01-30 22:39] VITALS: BMI 32.0
[2022-06-30 21:03] VITALS: BP 207/98; PULSE 75; RESP 18; TEMP 36.6; O2SAT 96; BMI 31.0
[2022-06-30 21:19] LABS: Add Manual Diff / Slide Review NO; Basophils Absolute Auto 100 /uL (0-100); Eosinophils Absolute Auto 500 /uL (0-450); Hematocrit 48.8 % (41-53); Hemoglobin 17.1 g/dL (13.5-17.5); Lymphocytes Absolute Auto 2300 /uL (1100-4500); Lymphocytes Percent Auto 19.7 % (25-40); Mean Corpuscular HGB Conc 35.1 % (30-36); Mean Corpuscular Hemoglobin 31.3 PG (26-34); Mean Corpuscular Volume 89.2 fL (80-100); Monocytes Absolute Auto 1100 /uL (0-900); Monocytes Percent Auto 9.8 % (3-14); Neutrophils Absolute Auto 7500 /uL (1500-7000); Neutrophils Percent Auto 65.5 % (50-75); Platelet Count 237 X10^3/uL (150-400); Red Blood Cell Count 5.47 X10^6/uL (4.5-5.9); Red Cell Distribution Width 13.3 % (11.6-14.8); White Blood Cell Count 11.4 X10^3/uL (4.5-11.0)
[2022-06-30 21:31] LABS: Alanine Aminotransferase 37 IU/L (<50); Albumin 4.3 g/dL (3.5-5.0); Albumin Globulin Ratio 1.3 (1.0-2.8); Alkaline Phosphatase 127 U/L (38-126); Aspartate Aminotransferase 25 IU/L (17-59); Bilirubin Total 0.6 mg/dL (0.2-1.3); Blood Urea Nitrogen 15 mg/dL (9-20); Calcium 8.8 mg/dL (8.4-10.2); Carbon Dioxide 26 mmol/L (22-32); Chloride 97 mmol/L (98-107); Estimated Glomerular Filt Rate > 60 mL/min (>60); Globulin 3.3 g/dL (1.7-4.1); Glucose 390 mg/dL (80-110); HEMOLYSIS 44 (0-50); Lipase 475 U/L (23-300); Potassium 4.3 mmol/L (3.4-5.1); Sodium 131 mmol/L (137-145); Total Protein 7.6 g/dL (6.3-8.2)
--- NOTE | 2022-06-30 22:54 | ED.ABDPAIN ---
HPI - Abdominal Pain General Chief Complaint: Abdominal Pain Stated Complaint: abd pain x1 day Time Seen by Provider: 06/30/22 20:57 Source: patient Mode of arrival: Ambulatory History of Present Illness HPI narrative: 61-year-old male former smoker with history of diabetes and hypertension presents with a chief complaint of right-sided flank pain with radiation around to his right abdomen. He states this has been on some level gradually worsening over the past 24 hours and become quite intense. He states that at times the pain seems to worsened without obvious provocation or palliation and at other times it seems to worsen with motion. He states it started in his right back in his wrapped around his right side. He denies any fever but has had a few episodes of chills. He has been nauseated but denies any vomiting. He denies chest pain or shortness of breath. He denies any dysuria, frequency or urgency and has had no constipation or diarrhea Related Data Home Medications Medication Instructions Recorded Confirmed atenolol 100 mg tablet 50 mg PO DAILY 01/30/21 01/30/21 glipizide 10 mg tablet, extended 10 mg PO DAILY 01/30/21 01/30/21 release 24 hr insulin glargine 100 unit/mL (3 30 unit SUBCUT QPM 01/30/21 01/30/21 mL) subcutaneous pen (Lantus Solostar U-100 Insulin) lisinopril 20 mg tablet 20 mg PO DAILY 01/30/21 01/30/21 metformin 1,000 mg tablet 1,000 mg PO BID 01/30/21 01/30/21 ondansetron 4 mg disintegrating 4 mg PO Q8H PRN Nausea 01/30/21 01/30/21 tablet polyethylene glycol 3350 17 17 g PO DAILY PRN Constipation 01/30/21 01/30/21 gram/dose oral powder (Miralax) pravastatin 20 mg tablet 20 mg PO DAILY 01/30/21 01/30/21 Previous Rx's Medication Instructions Recorded docusate sodium 100 mg tablet 100 mg PO BID #60 tabs 01/31/21 oxycodone 5 mg tablet 5 mg PO Q6H PRN pain #14 tabs 01/31/21 sennosides 8.6 mg capsule (senna) 8.6 mg PO BEDTIME PRN constipation 01/31/21 #30 caps ketorolac 10 mg tablet 10 mg PO Q6H PRN pain #14 tabs 07/01/22 ketorolac 10 mg tablet 10 mg PO Q6H PRN pain #14 tabs 07/01/22 Allergies Allergy/AdvReac Type Severity Reaction Status Date / Time No Known Drug Allergies Allergy Verified 05/13/21 08:12 Review of Systems Review of Systems Narrative: GENERAL: Denies chills, fatigue, malaise, fever, sweats. HEENT: Denies sinus pain, ear pain, sore throat, difficulty swallowing, dizziness. RESPIRATORY: Denies dyspnea, cough, wheezing, hemoptysis, sputum. CARDIOVASCULAR: Denies chest pain, palpitations, orthopnea, edema, GASTROINTESTINAL: See HPI. : See HPI MUSCULOSKELETAL: denies weakness, joint pain, or bony pain SKIN: Denies rash, skin lesions, or other NEUROLOGIC: Denies weakness, headache, numbness, change in speech, confusion, seizures, incoordination. PSYCHIATRIC: No concerning psychosocial issues. 12 point review of systems is negative except for those stated above Patient History Medical History Hyperlipidemia Hypertension Type 2 diabetes mellitus Family History Father Heart disease Social History household members: significant other Smoking Status: Former smoker Smoking Status: Former smoker alcohol intake frequency: holidays/special occasions only Substance Use Type: marijuana Exam Narrative Exam Narrative: GENERAL: [61] year old patient appears stated age. Well-developed patient, in mild distress. HEAD: Atraumatic. Normocephalic. EYES: Pupils equal round and reactive. Extraocular motions intact. No scleral icterus. No injection or drainage. ENT: Nose without bleeding, purulent drainage. Throat without erythema, tonsillar hypertrophy or exudate. Airway patent. NECK: Trachea midline. Non tender CARDIOVASCULAR: Regular rate and rhythm without murmurs, gallops, or rubs. RESPIRATORY: Clear to auscultation. Breath sounds equal bilaterally. No wheezes, rales, or rhonchi. GASTROINTESTINAL: Abdomen soft, non-tender, nondistended. EXTREMITIES: No edema or joint tenderness. BACK: Nontender without deformity or crepitance. No flank tenderness. NEURO: AOx3. SKIN: No rash or erythema of visible areas Initial Vital Signs Initial Vital Signs: Vital Signs Temperature 97.8 F 06/30/22 21:03 Pulse Rate 75 06/30/22 21:03 Respiratory Rate 18 06/30/22 21:03 Blood Pressure 207/98 H 06/30/22 21:03 Pulse Oximetry 96 06/30/22 21:03 Oxygen Delivery Method Room Air 06/30/22 21:03 Course Orders Ordered: Discontinued Medications Sodium Chloride (Normal Saline 0.9%) 1,000 mls @ 1,000 mls/hr IV BOLUS ONE Stop: 06/30/22 23:57 Last Infusion: 07/01/22 00:16 Dose: 0 mls/hr Documented By: Admin: 06/30/22 23:16 Dose: 1,000 mls/hr Documented By: CHLOE Ketorolac Tromethamine (Ketorolac 30 Mg/Ml Vial) 15 mg IV NOW ONE Stop: 06/30/22 22:59 Last Admin: 06/30/22 23:16 Dose: 15 mg Documented By: CHLOE Ondansetron HCl (Ondansetron 4 Mg Odt) 4 mg PO NOW PRN PRN Reason: Nausea And Vomiting Ondansetron HCl (Ondansetron 4 Mg/2 Ml Inj) 4 mg IV NOW PRN PRN Reason: Nausea And Vomiting Last Admin: 06/30/22 23:16 Dose: 4 mg Documented By: CHLOE Vital Signs Vital signs: Vital Signs - 8 hr 06/30/22 21:03 Temperature 97.8 F Pulse Rate 75 Respiratory Rate 18 Blood Pressure 207/98 H Pulse Oximetry 96 Oxygen Delivery Method Room Air MDM - Abdominal Pain Lab Data 06/30/22 21:10 06/30/22 21:10 Labs: Lab Results 06/30/22 06/30/22 Range/Units 21:10 21:10 WBC 11.4 H (4.5-11.0) X10^3/uL RBC 5.47 (4.5-5.9) X10^6/uL Hgb 17.1 (13.5-17.5) g/dL Hct 48.8 (41-53) % MCV 89.2 (80-100) fL MCH 31.3 (26-34) PG MCHC 35.1 (30-36) % RDW 13.3 (11.6-14.8) % Plt Count 237 (150-400) X10^3/uL Neut % (Auto) 65.5 (50-75) % Lymph % (Auto) 19.7 L (25-40) % [place] % (Auto) 9.8 (3-14) % Eos % (Auto) 4.0 (2-4) % Baso % (Auto) 1.0 (0-2) % Neut # (Auto) 7500 H (2509-8459) /uL Lymph # (Auto) 2300 (8286-2699) /uL [place] # (Auto) 1100 H (0-900) /uL Eos # (Auto) 500 H (0-450) /uL Baso # (Auto) 100 (0-100) /uL Sodium 131 L (137-145) mmol/L Potassium 4.3 (3.4-5.1) mmol/L Chloride 97 L (98-107) mmol/L Carbon Dioxide 26 (22-32) mmol/L BUN 15 (9-20) mg/dL Creatinine 0.60 L (0.66-1.25) mg/dL Estimated GFR > 60 (>60) mL/min BUN/Creatinine Ratio 25.0 H (6-22) Glucose 390 H (80-110) mg/dL Calcium 8.8 (8.4-10.2) mg/dL Total Bilirubin 0.6 (0.2-1.3) mg/dL AST 25 (17-59) IU/L ALT 37 (<50) IU/L Alkaline Phosphatase 127 H (38-126) U/L Total Protein 7.6 (6.3-8.2) g/dL Albumin 4.3 (3.5-5.0) g/dL Globulin 3.3 (1.7-4.1) g/dL Albumin/Globulin Ratio 1.3 (1.0-2.8) Lipase 475 H (23-300) U/L Point of care testing: Urine Dip Bedside Urine Glucose 1000 mg/dl Bedside Urine Bilirubin - Negative Bedside Urine Ketone - Negative Urine Specific [place] 1.010 Bedside Urine Occult Blood - Negative Bedside Urine pH 6.0 Bedside Urine Protein +/- 15 Bedside Urine Urobilinogen - Negative Bedside Urine Nitrite - Negative Bedside Urine Leukocytes - Negative Esterase MDM Narrative Medical decision making narrative: CC: 61-year-old male with colicky right flank pain Complicating co-morbidities: Age, diabetes, hypertension Data collected from: Patient Medical records reviewed: Prior notes reviewed in our EMR Differential considered, but not limited to: Kidney stone, urinary infection, bowel problem, gallbladder, liver versus other Exam documented above, pertinent findings include: Heart regular, lungs clear and nonlabored, abdomen nontender and soft, bowel sounds present Lab Test results independently reviewed as above. Pertinent findings: Urine with large amount of glucose but no blood or signs of infection, no leukocytosis or left shift, no evidence of anemia, no significant abnormal electrolytes, renal function at baseline, glucose elevated at 390, lipase slightly elevated at 475, noted to have no pain in his epigastrium Independently reviewed EKG as above Imaging studies independently reviewed: Etiology reported right flank pain is not identified, no hydronephrosis or nephrolithiasis Treatments: Toradol and IV fluids Re-evaluations: Symptoms significantly improved Discussion: Patient with colicky right flank pain improved significantly with fluids and Toradol. No significant lab abnormalities, no infection in urine, no kidney stone on imaging. Possibly musculoskeletal, missed kidney stone versus other. Pain is well controlled, patient is tolerating orals, no signs of sepsis or suggestion that hospitalization or surgical intervention is needed. Disposition: see below, along with detailed discharge instructions that have been reviewed with patient as well as indications for ED re-evaluation and additional outpatient follow up Discharge Plan Departure Patient Disposition: Home Clinical Impression: Acute flank pain Instructions: DI for Flank Pain Activity Restrictions/Additional Instructions: *You have been diagnosed with [right flank pain. As we discussed your history, physical exam, labs and imaging are reassuring as is your response to medications.] *What to do: *Please continue to take your regular medications as directed. [ x] New medication prescriptions sent to your pharmacy: [[facility]] [ ] New medication written as a paper prescription [ ] No new medications given *Please follow up with your primary care provider in 2-3 days, call for an appointment. Let them know you were seen in the Emergency Department and that we ask that you be seen in follow up. We will electronically transmit a record of today's note if your PCP is in our system *If you do not have a primary care provider please contact the [facility] Resource line at [phone]. They will ask some questions about your medical history and help get you set up with a doctor in the community. *Return to Emergency Department if you should have any new, worsening or concerning symptoms, such as [fever greater than 101 F, shaking chills, worsening pain, persistent vomiting or other bothersome symptoms] Prescriptions: New ketorolac 10 mg tablet 10 mg PO Q6H PRN (Reason: pain) Qty: 14 0RF ketorolac 10 mg tablet 10 mg PO Q6H PRN (Reason: pain) Qty: 14 0RF No Action atenolol 100 mg tablet 50 mg PO DAILY Patient Comments: TAKE 1/2 TABLET BY MOUTH DAILY lisinopril 20 mg Tablet 20 mg PO DAILY metformin 1,000 mg Tablet 1,000 mg PO BID pravastatin 20 mg Tablet 20 mg PO DAILY Lantus Solostar U-100 Insulin 100 unit/mL (3 mL) Insulin Pen 30 unit SUBCUT QPM glipizide 10 mg Tablet Extended Release 24hr 10 mg PO DAILY polyethylene glycol 3350 [Miralax] 17 gram/dose Powder 17 g PO DAILY PRN (Reason: Constipation) ondansetron 4 mg Tablet,Disintegrating 4 mg PO Q8H PRN (Reason: Nausea) oxycodone 5 mg tablet 5 mg PO Q6H PRN (Reason: pain) Qty: 14 0RF docusate sodium 100 mg tablet 100 mg PO BID Qty: 60 0RF senna 8.6 mg capsule 8.6 mg PO BEDTIME PRN (Reason: constipation) Qty: 30 0RF Stand Alone Forms: Patient Portal/API
--- NOTE | 2022-06-30 22:58 | DI.CT.S_ITS ---
PROCEDURE: CT KIDNEY URETER BLADDER (KUB) INDICATIONS: colicky R flank pain TECHNIQUE: Axial sections were acquired from the lung bases to the pubic symphysis. Coronal and sagittal reformats were performed. For radiation dose reduction, the following was used: automated exposure control, adjustment of mA and/or kV according to patient size. COMPARISON: None. FINDINGS: Image quality: Excellent. Lung bases: Unremarkable. Heart: No significant findings. URINARY: Right Kidney: No stones or hydronephrosis. Right Ureter: No hydroureter. Left Kidney: No stones or hydronephrosis. Left Ureter: No hydroureter. Bladder: Normal wall thickness. No stones. ABDOMEN: Liver: Unremarkable. Gallbladder: Unremarkable. Biliary ducts: Unremarkable. Pancreas: Unremarkable. Spleen: Unremarkable. Adrenal Glands: Unremarkable. Stomach and Bowel: Stomach, small bowel loops, and colon are unremarkable. Peritoneum: No abnormal intraperitoneal fluid. No free air. Ventral Wall: No hernia. Abdominal Nodes: No enlarged retroperitoneal or mesenteric lymph nodes. Vessels: Aorta and inferior vena cava are normal in size. PELVIS: Pelvic Organs: Unremarkable. Pelvic Nodes: Unremarkable. Miscellaneous: No inguinal hernias are seen. Bones: Unremarkable. IMPRESSION: Etiology of reported right flank pain is not identified. No hydronephrosis or nephrolithiasis or inflammatory process is seen. Dictated by: Segundo Bruce M.D. on 06/30/2022 at 23:18 Approved by: Segundo Bruce M.D. on 06/30/2022 at 23:19
[2022-06-30 23:14] VITALS: O2SAT 96
[2022-06-30 23:15] VITALS: BP 181/90; PULSE 69; O2SAT 95
[2022-06-30] MEDS: SODIUM CHLORIDE 0.9% 1,000 ML 1000 ML IV (23:16)
[2022-06-30] MEDS: KETOROLAC 30 MG/ML VIAL 15 MG IV (23:16)
[2022-06-30] MEDS: ONDANSETRON 4 MG/2 ML INJ IV (23:16)
[2022-06-30 23:30] VITALS: BP 144/81; PULSE 70; O2SAT 94
[2022-07-01] VITALS: BP 162/78; PULSE 68; O2SAT 93
[2022-07-01 00:15] VITALS: BP 163/79; PULSE 66; O2SAT 94
== END 2022-07-01 00:25 | disposition home or self-care (01) ==
PROVIDERS: Emergency Provider Emergency Medicine
DX: R10.9 Unspecified abdominal pain (principal); I10 Essential (primary) hypertension
CPT/HCPCS: 36415; 74176; 80053; 81003; 83690; 85025; 96361; 96374; 96375; 99284; J1885; J2405

== ENCOUNTER 2022-08-15 10:59 | Emergency (ER) | payer OTHER, SELFPAY ==
[2021-01-30 22:39] VITALS: BMI 32.0
[2022-08-15 11:04] VITALS: PULSE 78; O2SAT 98
[2022-08-15 11:06] VITALS: PULSE 79; O2SAT 98
[2022-08-15 11:08] VITALS: BP 183/86; PULSE 78; RESP 18; TEMP 36.8; O2SAT 98; BMI 29.0
--- NOTE | 2022-08-15 11:18 | ED.NEUROSD ---
HPI - Neuro Symptoms/Deficit General Chief Complaint: Neuro Symptoms/Deficit Stated Complaint: droopy eye/LT side can't drink or talk very well Time Seen by Provider: 08/15/22 11:08 Source: patient Mode of arrival: Ambulatory Limitations: no limitations History of Present Illness HPI Narrative: Patient complains of left facial droop, and inability to close his left eye, onset of symptoms about 24 hours ago. He has left-sided rhinorrhea. He is not aware of numbness, just the droop. He is no visual changes. He is not experiencing left eye irritation, or discharge. He is no sore throat. He is no neck pain. He is no numbness or weakness in his extremities. His speech is clear. He is no confusion. He has allergies, he has been cutting grass. He is not aware of a respiratory illness but notes symptoms could be hidden within his congestion associated with the allergies. He is diabetic with HTN and hyperlipidemia. He is no history of CAD, no history of CVA. He is no fever, no chills, no obvious evidence of recent illness. He is no skin rashes, no other clinical concerns. On Anticoagulants: No Related Data Home Medications Medication Instructions Recorded Confirmed atenolol 100 mg tablet 50 mg PO DAILY 01/30/21 01/30/21 glipizide 10 mg tablet, extended 10 mg PO DAILY 01/30/21 01/30/21 release 24 hr insulin glargine 100 unit/mL (3 30 unit SUBCUT QPM 01/30/21 01/30/21 mL) subcutaneous pen (Lantus Solostar U-100 Insulin) lisinopril 20 mg tablet 20 mg PO DAILY 01/30/21 01/30/21 metformin 1,000 mg tablet 1,000 mg PO BID 01/30/21 01/30/21 ondansetron 4 mg disintegrating 4 mg PO Q8H PRN Nausea 01/30/21 01/30/21 tablet polyethylene glycol 3350 17 17 g PO DAILY PRN Constipation 01/30/21 01/30/21 gram/dose oral powder (Miralax) pravastatin 20 mg tablet 20 mg PO DAILY 01/30/21 01/30/21 Previous Rx's Medication Instructions Recorded docusate sodium 100 mg tablet 100 mg PO BID #60 tabs 01/31/21 oxycodone 5 mg tablet 5 mg PO Q6H PRN pain #14 tabs 01/31/21 sennosides 8.6 mg capsule (senna) 8.6 mg PO BEDTIME PRN constipation 01/31/21 #30 caps ketorolac 10 mg tablet 10 mg PO Q6H PRN pain #14 tabs 07/01/22 ketorolac 10 mg tablet 10 mg PO Q6H PRN pain #14 tabs 07/01/22 prednisone 20 mg tablet 40 mg PO DAILY 6 days #18 tabs 08/15/22 Allergies Allergy/AdvReac Type Severity Reaction Status Date / Time No Known Drug Allergies Allergy Verified 05/13/21 08:12 Review of Systems Review of Systems ROS Unobtainable: All systems reviewed & are unremarkable except as noted in HPI and below Hematologic/Lymphatic On Anticoagulants: No Patient History Medical History Hyperlipidemia Hypertension Type 2 diabetes mellitus Family History Father Heart disease Social History household members: significant other Smoking Status: Former smoker Smoking Status: Former smoker alcohol intake frequency: holidays/special occasions only Substance Use Type: marijuana Exam Initial Vital Signs Initial Vital Signs: Vital Signs Pulse Rate 78 08/15/22 11:04 Pulse Oximetry 98 08/15/22 11:04 Const General: cooperative, healthy appearing, comfortable, well developed and well groomed HENMT Head: other (Left facial droop.) Ears: TM's normal bilaterally Nose: nares normal Mouth: oral mucosae normal HENMT Other: Left facial droop. Inability to close his left upper lid. Forehead flattening when frequently. 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 No extremity numbness or weakness. Cerebellar exam is normal. Gait is normal. There are no visual deficits. His speech is clear. Course Course Course Narrative: The patient has left Rosenberg's. Symptoms are not severe. He is decreased blink, pink and almost close left eye. I will discharge him on prednisone 60 mg daily for 1 week. He is advised to protect his eye with cold compresses, and artificial tears. He should follow up with his doctor in about 10 days for recheck, return here if worse. Orders Ordered: Discontinued Medications Prednisone (Prednisone 20 Mg Tablet) 60 mg PO NOW ONE Stop: 08/15/22 11:19 Last Admin: 08/15/22 11:23 Dose: 60 mg Documented By: RO Vital Signs Vital signs: Vital Signs - 8 hr 08/15/22 11:37 08/15/22 11:35 Pulse Rate 70 Blood Pressure 130/80 Pulse Oximetry 98 Oxygen Delivery Method Room Air Discharge Plan Departure Patient Disposition: Home Clinical Impression: Rosenberg's palsy Instructions: Rosenberg Palsy Activity Restrictions/Additional Instructions: Continue your current medications. Prednisone 60 mg daily for a total of 1 week. You have received your 1st dose here in the ER. The prednisone will transiently elevate your glucose. Doses should improve after finishing this medication. Recheck with your doctor in about 10 days. Return the ER if obviously worse. Prescriptions: New prednisone 20 mg tablet 40 mg PO DAILY 6 Days Qty: 18 0RF No Action ketorolac 10 mg tablet 10 mg PO Q6H PRN (Reason: pain) Qty: 14 0RF ketorolac 10 mg tablet 10 mg PO Q6H PRN (Reason: pain) Qty: 14 0RF atenolol 100 mg tablet 50 mg PO DAILY Patient Comments: TAKE 1/2 TABLET BY MOUTH DAILY lisinopril 20 mg Tablet 20 mg PO DAILY metformin 1,000 mg Tablet 1,000 mg PO BID pravastatin 20 mg Tablet 20 mg PO DAILY Lantus Solostar U-100 Insulin 100 unit/mL (3 mL) Insulin Pen 30 unit SUBCUT QPM glipizide 10 mg Tablet Extended Release 24hr 10 mg PO DAILY polyethylene glycol 3350 [Miralax] 17 gram/dose Powder 17 g PO DAILY PRN (Reason: Constipation) ondansetron 4 mg Tablet,Disintegrating 4 mg PO Q8H PRN (Reason: Nausea) oxycodone 5 mg tablet 5 mg PO Q6H PRN (Reason: pain) Qty: 14 0RF docusate sodium 100 mg tablet 100 mg PO BID Qty: 60 0RF senna 8.6 mg capsule 8.6 mg PO BEDTIME PRN (Reason: constipation) Qty: 30 0RF Referrals: Miscellaneous,Doctor, MD [Primary Care Provider] - Stand Alone Forms: Patient Portal/API
[2022-08-15] MEDS: predniSONE 20 MG TABLET 60 MG PO (11:23)
[2022-08-15 11:35] VITALS: BP 130/80; PULSE 70; O2SAT 98
== END 2022-08-15 11:35 | disposition home or self-care (01) ==
PROVIDERS: Emergency Provider Emergency Medicine
DX: G51.0 Bell's palsy (principal)
CPT/HCPCS: 99283